=== PATIENT | male | born 1965 | race American Indian/Alaskan Native ===

== ENCOUNTER 2019-09-23 12:23 | Emergency (ER) | payer SELFPAY ==
[2019-09-23 12:36] VITALS: BP 134/86
[2019-09-23] MEDS ORDERED: DIPHtheria,PERTUSSIS(ACELL),TETANUS VACCINE/PF 0.5 ML VIAL IM ONE (13:25)
--- NOTE | 2019-09-23 13:28 | Emergency Department Report ---
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 His office sent him here. They did not send any paperwork. Is unusual to go to the ER for Workmen's Comp. However, given COVID I presume that is why he is here. He does not need stitches. It is more of a abrasion/puncture wound. - Related Data Allergies Allergy/AdvReac Type Severity Reaction Status Date / Time No Known Allergies Allergy Unverified 09/23/19 12:31 ED Review of Systems ROS: Stated complaint: STUCK WITH BLOODY INSTRUMENT Other details as noted in HPI Comment: All other systems reviewed and negative ED Past Medical Hx - Past Medical History Previous Medical History?: No - Surgical History Past Surgical History?: Yes Additional Surgical History: right knee- meniscus repair - Family History Family history: no significant - Social History Smoking Status: Never Smoker Substance Use Type: None ED Physical Exam - General Limitations: No Limitations General appearance: alert, in no apparent distress - Head Head exam: Present: atraumatic, normocephalic - Eye Eye exam: Present: normal appearance - ENT ENT exam: Present: mucous membranes moist - Neck Neck exam: Present: normal inspection - Respiratory Respiratory exam: Present: normal lung sounds bilaterally. Absent: respiratory distress - Cardiovascular Cardiovascular Exam: Present: regular rate, normal rhythm. Absent: systolic murmur, diastolic murmur, rubs, gallop - GI/Abdominal GI/Abdominal exam: Present: soft, normal bowel sounds - Rectal Rectal exam: Present: deferred - Extremities Exam Extremities exam: Present: normal inspection - Back Exam Back exam: Present: normal inspection - Neurological Exam Neurological exam: Present: alert, oriented X3 - Psychiatric Psychiatric exam: Present: normal affect, normal mood - Skin Skin exam: Present: warm, dry, normal color, other (abrasion from instrument across left finger, index). Absent: rash ED Course Vital Signs 09/23/19 12:32 Temperature 98.6 F Pulse Rate 76 Respiratory 20 Rate Blood Pressure 134/86 O2 Sat by Pulse 98 Oximetry ED Recheck MDM - Core Measures Measure Exclusions: not indicated - Medical Decision Making blood born pathogen exposure no need for sutures pt educated on serial tests per his office policy hiv/hep series sent today tdap given wound care provided dc home with follow-up per his job. Patient has been educated to call the hospital next week to work on obtaining a copy of his test results for his baseline blood-borne pathogen test. Vital Signs 09/23/19 12:32 Temperature 98.6 F Pulse Rate 76 Respiratory 20 Rate Blood Pressure 134/86 O2 Sat by Pulse 98 Oximetry Critical care attestation.: If time is entered above; I have spent that time in minutes in the direct care of this critically ill patient, excluding procedure time. ED Disposition Clinical Impression: Exposure to blood-borne pathogen Disposition: DC-01 TO HOME OR SELFCARE Is pt being admited?: No Does the pt Need Aspirin: No Condition: Stable Additional Instructions: HIV AND HEPATITIS PANEL SENT TODAY YOU CAN OBTAIN RESULTS IN APPROX 1 WEEK FOLLOW UP PER YOUR OFFICE POLICY FOR BBP EXPOSURE - USUALLY AT 3,6, AND 12 MONTHS Referrals: JOSE BRAR MD [Staff Physician] - 3-5 Days Time of Disposition: 13:27
[2019-09-23 14:49] LABS: Alanine Aminotransferase 28 units/L (7-56); Albumin 4.6 g/dL (3.9-5); Bilirubin,Direct < 0.2 mg/dL (0-0.2)
== END 2019-09-23 13:55 | disposition home or self-care (01) ==
LOC: ED 12:23
DX: S60.411A Abrasion of left index finger, initial encounter (principal); Z77.21 Contact with and (suspected) exposure to potentially hazardous body fluids; Z98.890 Other specified postprocedural states; X58.XXXA Exposure to other specified factors, initial encounter; Y93.89 Activity, other specified; Y92.89 Other specified places as the place of occurrence of the external cause; Y99.8 Other external cause status
CPT/HCPCS: 36415; 80076; 87535; 90471; 90715; 99283